=== PATIENT | male | born 1995 | race Caucasian/White ===

== ENCOUNTER 2022-04-12 10:51 | Inpatient (IN) | payer MEDICAID ==
[~2022-04-12] VITALS: Ht 170.2 cm; Wt 77.1 kg
[2022-04-12] MEDS ORDERED: IPRATROPIUM BROMIDE (0.02%) 0.5MG/2.5ML NEB HHN STA (11:22)
[2022-04-12] MEDS ORDERED: ALBUTEROL (0.083%) 2.5MG/3ML NEB HHN STA (11:22)
[2022-04-12] MEDS ORDERED: METHYLPREDNISOLONE SOD SUCC 125 MG/2 ML VIAL IV STA (11:22)
[2022-04-12] MEDS ORDERED: SODIUM CHLORIDE 0.9% 1,000 ML IV ONE (11:30)
[2022-04-12 12:25] LABS: HEMATOCRIT. 43.8 % (42.0-52.0); HEMOGLOBIN. 15.3 g/dL (14.0-18.0); MEAN CORPUSCULAR HEMOGLOBIN 30.9 pg (28.0-32.0); MEAN CORPUSCULAR VOLUME 88.5 fL (80.0-94.0); PLATELET 312 x1000/uL (130-400); RED BLOOD CELL COUNT 4.95 mill/uL (4.7-6.1); RED CELL DISTRIBUTION WIDTH 13.3 % (11.6-14.6)
[2022-04-12 12:29] LABS: CHLORIDE 94 mEq/L (98-107)
[2022-04-12] MEDS ORDERED: AZITHROMYCIN 500MG/250ML 250 ML IV ONE (12:30)
[2022-04-12] MEDS ORDERED: CEFTRIAXONE 2 G PREMIX 50 ML IV ONE (12:30)
[2022-04-12 12:44] LABS: INR 1.1
[2022-04-12] MEDS ORDERED: POTASSIUM CHLORIDE 20MEQ TABLET SR PO ONE (12:45)
[2022-04-12] MEDS ORDERED: CEFTRIAXONE 2 G in DEXTROSE 5% WATER 50 ML IV SCH (13:00)
[2022-04-12 13:01] LABS: CLARITY URINE CLEAR (CLEAR); COLOR URINE DARK YELLOW (YELLOW); KETONES URINE 2+ (NEGATIVE); LEUKOCYTE ESTERASE URINE 1+ (NEGATIVE); NITRITE URINE POSITIVE (NEGATIVE); OCCULT BLOOD URINE NEGATIVE (NEGATIVE); PH URINE 6.5 (4.5-8.0); PROTEIN URINE 3+ (NEGATIVE); SPECIFIC GRAVITY URINE 1.034 (1.005-1.030); UROBILINOGEN URINE >8.0 E.U./dL (0.2-1.0)
[2022-04-12 13:11] LABS: PLATELET ESTIMATE NORMAL
[2022-04-12] MEDS ORDERED: CLONIDINE 0.1MG TABLET PO PRN (14:15)
[2022-04-12] MEDS ORDERED: GUAIFENESIN 200MG/10ML SUGAR FREE UDC PO PRN (14:15)
[2022-04-12] MEDS ORDERED: KETOROLAC 15MG/ML VIAL IV PRN (14:15)
[2022-04-12] MEDS ORDERED: MAGNESIUM/ALUMINUM HYDROXIDE/SIMETHICONE 30ML UDC PO PRN (14:15)
[2022-04-12] MEDS ORDERED: ONDANSETRON HCL 4MG/2ML INJ IV PRN (14:15)
[2022-04-12] MEDS ORDERED: DOCUSATE SODIUM 100MG CAPSULE PO PRN (14:15)
[2022-04-12] MEDS ORDERED: ZOLPIDEM TARTRATE 5MG TABLET PO PRN (14:15)
[2022-04-12] MEDS ORDERED: ACETAMINOPHEN 325MG TABLET PO PRN ×2 (14:15)
[2022-04-12] MEDS ORDERED: NITROGLYCERIN 0.4MG TABLET SL SL PRN (14:15)
[2022-04-12] MEDS ORDERED: POTASSIUM CHLORIDE 20MEQ TABLET SR PO NR (14:30)
[2022-04-12 15:16] LABS: T4 FREE 1.34 ng/dL (0.76-1.46)
[2022-04-12] MEDS ORDERED: MVI, ADULT NO.1 10 ML, FOLIC ACID 1 MG, THIAMINE HCL 100 MG in SODIUM CHLORIDE 0.9% 1,0... IV ONE ×4 (15:30)
[2022-04-12 15:32] LABS: VITAMIN B12 SERUM 1445 pg/mL (211-911)
[2022-04-12] MEDS: FAMOTIDINE 20MG TABLET PO SCH (22:17)
[2022-04-12] MEDS: ASCORBIC ACID 500 MG TABLET PO SCH (22:17)
[2022-04-12 23:21] VITALS: BP 135/82
[2022-04-12 23:30] VITALS: BP 135/82
[2022-04-12] MEDS: GUAIFENESIN 600MG ER TABLET PO SCH (23:35)
[2022-04-13] VITALS (9 sets, daily range): BP systolic 110–146; BP diastolic 65–87
[2022-04-13 00:15] LABS: CREATINE KINASE 31 IU/L (39-308); CREATINE KINASE MB FRACTION < 1.0 ng/mL (0.5-3.6)
[2022-04-13 05:34] LABS: HEMATOCRIT. 39.3 % (42.0-52.0); HEMOGLOBIN. 13.6 g/dL (14.0-18.0); MEAN CORPUSCULAR HEMOGLOBIN 31.4 pg (28.0-32.0); MEAN CORPUSCULAR VOLUME 90.7 fL (80.0-94.0); PLATELET 324 x1000/uL (130-400); RED BLOOD CELL COUNT 4.33 mill/uL (4.7-6.1); RED CELL DISTRIBUTION WIDTH 13.5 % (11.6-14.6)
[2022-04-13 05:35] LABS: CHLORIDE 103 mEq/L (98-107)
[2022-04-13 05:45] LABS: CREATINE KINASE 30 IU/L (39-308); CREATINE KINASE MB FRACTION < 1.0 ng/mL (0.5-3.6); PHOSPHORUS 2.6 mg/dL (2.5-4.9)
[2022-04-13] MEDS: ZINC SULFATE 220 MG ( 50 ) CAPSULE PO SCH (08:37)
[2022-04-13] MEDS: GUAIFENESIN 600MG ER TABLET PO SCH (08:37)
[2022-04-13] MEDS: ASCORBIC ACID 500 MG TABLET PO SCH (08:37)
[2022-04-13] MEDS: FAMOTIDINE 20MG TABLET PO SCH (08:37)
[2022-04-13] MEDS ORDERED: CEFTRIAXONE 1 G PREMIX 50 ML IV SCH (09:00)
[2022-04-13 11:07] LABS: PLATELET ESTIMATE NORMAL
[2022-04-13] MEDS ORDERED: AZITHROMYCIN 500 MG in DEXT 5% WATER 250 ML IV SCH (13:00)
[2022-04-13] MEDS ORDERED: CEFTRIAXONE 1,000 MG in DEXTROSE 5% WATER 50 ML IV SCH (13:00)
[2022-04-13] MEDS: CEFTRIAXONE 1,000 MG in DEXTROSE 5% WATER 50 ML IV SCH (13:22)
[2022-04-13] MEDS: AZITHROMYCIN 500 MG in DEXT 5% WATER 250 ML IV SCH (13:57)
[2022-04-14] VITALS: BP 129/66
[2022-04-14] MEDS: GUAIFENESIN 600MG ER TABLET PO SCH ×3 (01:27→22:12)
[2022-04-14] MEDS: ASCORBIC ACID 500 MG TABLET PO SCH ×3 (01:27→22:11)
[2022-04-14] MEDS: FAMOTIDINE 20MG TABLET PO SCH ×3 (01:27→22:11)
[2022-04-14] MEDS: IPRATROPIUM/ALBUTEROL 0.5-3(2.5)MG/3ML NEB NEB PRN (01:43)
[2022-04-14 04:00] VITALS: BP 119/77
[2022-04-14 04:07] LABS: HIV SCREEN 4G Non Reactive (Non Reactive)
[2022-04-14 08:00] VITALS: BP 125/74
[2022-04-14] MEDS: ZINC SULFATE 220 MG ( 50 ) CAPSULE PO SCH (08:58)
[2022-04-14 10:08] LABS: BG BASE EXCESS 1.2 mmol/L (-2.0-2.0); BG CARBOXYHEMOGLOBIN 0.3 % (0.5-1.5); BG DEOXYHEMOGLOBIN 1.8 % (0.0-5.0); BG FRACTION INSPIRED OXYGEN 100; BG HCO3 ACT 23.8 mmol/L (22.0-26.0); BG METHEMOGLOBIN 0.5 % (0.0-1.5); BG OXYGEN SATURATION 98.2 % (92.0-98.5); BG OXYHEMOGLOBIN 97.4 % (94.0-97.0); BG PCO2 32.3 mmHg (35.0-45.0); BG PH 7.485 (7.350-7.450); BG PO2 102.1 mmHg (75.0-100.0); BG SAMPLE SITE LEFT BRACHIAL; BG VENT MODE MASK - NRB
[2022-04-14 12:00] VITALS: BP 133/75
[2022-04-14] MEDS ORDERED: VANCOMYCIN 1500MG in DEXTROSE 5% WATER 250ML IV NR (12:00)
[2022-04-14] MEDS: CEFTRIAXONE 1,000 MG in DEXTROSE 5% WATER 50 ML IV SCH (13:01)
[2022-04-14] MEDS: AZITHROMYCIN 500 MG in DEXT 5% WATER 250 ML IV SCH (13:20)
[2022-04-14] MEDS: IPRATROPIUM BROMIDE (0.02%) 0.5MG/2.5ML NEB HHN SCH ×2 (15:44→20:30)
[2022-04-14 16:00] VITALS: BP 117/71
[2022-04-14 20:00] VITALS: BP 115/77
[2022-04-14] MEDS: VANCOMYCIN 1G PREMIX 200 ML IV SCH (22:08)
[2022-04-15] VITALS: BP 129/82
[2022-04-15] MEDS: IPRATROPIUM BROMIDE (0.02%) 0.5MG/2.5ML NEB HHN SCH ×4 (02:25→21:47)
[2022-04-15 04:00] VITALS: BP 136/88
[2022-04-15] MEDS: VANCOMYCIN 1G PREMIX 200 ML IV SCH (05:29)
[2022-04-15 08:00] VITALS: BP 125/76
[2022-04-15] MEDS: FAMOTIDINE 20MG TABLET PO SCH ×2 (08:32→21:07)
[2022-04-15] MEDS: ASCORBIC ACID 500 MG TABLET PO SCH ×2 (08:32→21:06)
[2022-04-15] MEDS: ZINC SULFATE 220 MG ( 50 ) CAPSULE PO SCH (08:32)
[2022-04-15] MEDS: GUAIFENESIN 600MG ER TABLET PO SCH ×2 (08:37→21:06)
[2022-04-15 09:38] LABS: CHLORIDE 98 mEq/L (98-107)
[2022-04-15] MEDS: CEFTRIAXONE 1,000 MG in DEXTROSE 5% WATER 50 ML IV SCH (11:31)
[2022-04-15 11:32] VITALS: BP 118/81
[2022-04-15] MEDS: AZITHROMYCIN 500 MG in DEXT 5% WATER 250 ML IV SCH (15:54)
[2022-04-15 15:56] VITALS: BP 116/74
[2022-04-15] MEDS: VANCOMYCIN 750MG PREMIX 150 ML IV SCH ×2 (16:23→21:06)
[2022-04-15 20:00] VITALS: BP 104/68
[2022-04-15] MEDS: ENOXAPARIN 40MG/0.4ML SYR SUBCUT SCH (21:07)
[2022-04-16] VITALS: BP 99/59
[2022-04-16] MEDS: IPRATROPIUM BROMIDE (0.02%) 0.5MG/2.5ML NEB HHN SCH ×4 (01:34→19:52)
[2022-04-16 04:00] VITALS: BP 129/73
[2022-04-16] MEDS: IPRATROPIUM/ALBUTEROL 0.5-3(2.5)MG/3ML NEB NEB PRN (04:09)
[2022-04-16] MEDS: VANCOMYCIN 750MG PREMIX 150 ML IV SCH (06:16)
[2022-04-16 08:00] VITALS: BP 122/79
[2022-04-16] MEDS: ZINC SULFATE 220 MG ( 50 ) CAPSULE PO SCH (09:03)
[2022-04-16] MEDS: GUAIFENESIN 600MG ER TABLET PO SCH ×2 (09:03→21:20)
[2022-04-16] MEDS: FAMOTIDINE 20MG TABLET PO SCH ×2 (09:03→21:19)
[2022-04-16] MEDS: ASCORBIC ACID 500 MG TABLET PO SCH ×2 (09:03→21:20)
[2022-04-16] MEDS: METHYLPREDNISOLONE SOD SUCC 40 MG/ML VIAL IV SCH ×3 (11:46→21:20)
[2022-04-16] MEDS: CEFTRIAXONE 1,000 MG in DEXTROSE 5% WATER 50 ML IV SCH (11:46)
[2022-04-16 12:00] VITALS: BP 116/72
[2022-04-16 12:06] LABS: CHLORIDE 100 mEq/L (98-107)
[2022-04-16] MEDS: AZITHROMYCIN 500 MG in DEXT 5% WATER 250 ML IV SCH (12:46)
[2022-04-16] MEDS: VANCOMYCIN 1G PREMIX 200 ML IV SCH ×2 (14:46→22:37)
[2022-04-16 16:00] VITALS: BP 123/78
[2022-04-16 20:00] VITALS: BP 121/75
[2022-04-16] MEDS: ENOXAPARIN 40MG/0.4ML SYR SUBCUT SCH (21:19)
[2022-04-17] VITALS: BP 131/80
[2022-04-17] MEDS: IPRATROPIUM BROMIDE (0.02%) 0.5MG/2.5ML NEB HHN SCH ×2 (01:26→07:41)
[2022-04-17 04:00] VITALS: BP 130/80
[2022-04-17] MEDS: VANCOMYCIN 1G PREMIX 200 ML IV SCH (05:33)
[2022-04-17] MEDS: METHYLPREDNISOLONE SOD SUCC 40 MG/ML VIAL IV SCH (05:33)
[2022-04-17] MEDS: FAMOTIDINE 20MG TABLET PO SCH (07:55)
[2022-04-17] MEDS: GUAIFENESIN 600MG ER TABLET PO SCH (07:55)
[2022-04-17] MEDS: ZINC SULFATE 220 MG ( 50 ) CAPSULE PO SCH (07:55)
[2022-04-17] MEDS: ASCORBIC ACID 500 MG TABLET PO SCH (07:55)
[2022-04-17 08:00] VITALS: BP 125/71
[2022-04-17] MEDS ORDERED: ALBU6.7H3 INH (08:16)
[2022-04-17] MEDS ORDERED: LEVO750T68 MT (08:16)
[2022-04-17] MEDS ORDERED: P20 MT (08:16)
[2022-04-17 11:36] VITALS: BP 137/96
[2022-04-17 12:00] VITALS: BP 137/96
[2022-04-18] MEDS ORDERED: METHYLPREDNISOLONE SOD SUCC 40 MG/ML VIAL IV SCH (09:00)
== END 2022-04-17 12:09 | disposition home or self-care (01) | DRG 720 ==
LOC: ER 10:51 → EDBEDREQSVC 12:39 → EDBEDREQ 12:39 → MICUSO 13:22 → EDBEDREQTM 13:27 → EDBEDREQ 13:27 → 3WST 23:12
PROVIDERS: ADMIT Internal Medicine; ATTEND Internal Medicine
DX: A41.9 Sepsis, unspecified organism (principal); J96.01 Acute respiratory failure with hypoxia; E44.0 Moderate protein-calorie malnutrition; J18.9 Pneumonia, unspecified organism; E87.6 Hypokalemia; Z20.822 Contact with and (suspected) exposure to COVID-19; J45.909 Unspecified asthma, uncomplicated; N39.0 Urinary tract infection, site not specified; R73.9 Hyperglycemia, unspecified; Z87.09 Personal history of other diseases of the respiratory system; Z68.26 Body mass index [BMI] 26.0-26.9, adult
CPT/HCPCS: 36415; 36600; 71045; 71275; 80048; 80053; 80202; 81003; 82375; 82550; 82553; 82607; 82746; 82805; 83540; 83550; 83605; 83735; 83880; 84100; 84145; 84439; 84443; 84484; 85025; 87070; 87389; 87426; 87804; 93005; 93306; 93970; 94640; 97162; 97166; 99291; C1893; C9803; J0456; J0696; J1650; J2920; J2930; J3370; J3411; J3490; J7030; J7060